=== PATIENT | male | born 1940 ===

== ENCOUNTER → 2022-10-02 12:41 | Outpatient (CLI) | payer MEDICARE, BC, SELFPAY ==
--- NOTE | ~2022-10-02 | US_ITS ---
EXAMINATION: US pelvic limited DATE: 10/02/2022 13:19 INDICATION: Urinary retention. TECHNIQUE: Multiple grayscale and Doppler ultrasound images of the pelvis were obtained. COMPARISON: None FINDINGS: The prevoid bladder volume is 937 mL. The postvoid bladder volume is 1076 mL. IMPRESSION: 1. Large bladder with urinary retention. Reviewed, dictated and finalized at location A.
== END ==
PROVIDERS: PCP Family Medicine; Visit Provider Family Medicine
DX: R33.9 Retention of urine, unspecified (principal)
CPT/HCPCS: 76857